=== PATIENT | female | born 1990 | race Caucasian/White ===

== ENCOUNTER → 2018-12-07 | Outpatient (CLI) | payer BC ==
--- NOTE | 2018-12-07 16:33 | REP ---
Clinical: Dating and viability. Technique: Transabdominal first trimester obstetrical ultrasound with color Doppler evaluation. Findings: Single live early intrauterine identified. CRL of 71 mm corresponds to 13 weeks 2 days gestational age with estimated date of delivery 06/12/2019. heart rate equals 152 beats per minute. No gross abnormalities are identified. Impression: Single live intrauterine at 13 weeks 2 days gestational age. Complete anatomical assessment should be performed at 19-20 weeks. Electronically Signed by Maikol Johnson MD 12/07/2018 04:24 P
== END ==
LOC: M RAD 15:26
PROVIDERS: ATTEND Nurse Practitioner Family
DX: Z36.9 Encounter for antenatal screening, unspecified (principal); Z3A.13 13 weeks gestation of pregnancy

== ENCOUNTER → 2019-03-23 | Outpatient (CLI) | payer BC ==
--- NOTE | 2019-03-23 11:32 | REP ---
Clinical: Dating and viability. 2.1 x 2.7 x 1.5 cm (RI 0.59). Technique: Transabdominal and transvaginal first trimester obstetrical ultrasound with color Doppler evaluation. Findings: Ultrasound examination demonstrates single live early intrauterine . Gestational sac with yolk sac and pole identified. CRL of 5 mm corresponds to 6 weeks 1 day gestational age with estimated date of delivery 11/15/2019. heart rate equals 111 beats per minute. No subchorionic hemorrhage or obvious abnormality noted. Bilateral maternal ovaries demonstrate normal vascularity without torsion. Right ovary measures 4.9 x 2.4 x 2.9 cm (RI 0.63) and includes 1.7 cm complex hemorrhagic cyst and 1.9 cm simple cyst. Left ovary measures 2.1 x 2.7 x 1.5 cm (RI 0.59). Impression: Single live early intrauterine at 6 weeks 1 day gestational age. Complete anatomical assessment should be performed at 19-20 weeks. Electronically Signed by Maikol Johnson MD 03/23/2019 11:24 A
== END ==
LOC: M RAD 10:46
PROVIDERS: ATTEND Physician Assistant
DX: Z32.01 Encounter for pregnancy test, result positive (principal)